=== PATIENT | female | born 1990 | race Caucasian/White ===

== ENCOUNTER 2024-01-31 20:44 | Emergency (ER) | payer SELFPAY ==
[2024-01-31 20:50] VITALS: BP 113/79
--- NOTE | 2024-01-31 21:23 | ED.GENMED ---
History of Present Illness
<Amina Wilkes PA-C - Last Filed: 01/31/24 23:08>
General
Chief Complaint: Musculo-Skeletal Complaint
Source: patient
Exam Limitations: none
Time Seen by Provider: 01/31/24 21:17
Nursing documentation reviewed up to this point in time: agreed with
Travel History
Have you had any contact with someone who has COVID-19?: No
Do you have any symptoms of coronavirus? Fever > 100 degrees, chills, cough, shortness of breath, sore throat, loss of taste or smell, muscle aches, or headache?: No
History of Present Illness
History of Present Illness:
Patient is a 33-year-old female with no significant past medical history presenting for evaluation of left foot injury. Patient states that she was walking her dog earlier today around 3 PM when her dog pulled the leash and she tripped. She
initially had pain in her left ankle but after getting home she noticed that the pain was in her left foot. She endorses some bruising and swelling to her left lateral foot. She has been unable to weight-bear without assistance since. Patient
denies any numbness or tingling in left foot. She denies sustaining any other injuries in the fall. She did not hit her head or lose consciousness.
Phy Exam
<Amina Wilkes PA-C - Last Filed: 01/31/24 23:08>
Physical Exam
Physical Exam:
Vitals: Patient's vital signs are stable
General: Patient is well appearing, no acute distress
Skin: Warm and dry, no rashes or lesions
Head: Normocephalic, atraumatic
Eyes: Sclera nonicteric. EOMs intact. No nystagmus.
Cardiac: Regular rate and rhythm, no murmurs.
Pulm: Normal respiratory effort, no wheezes, rales, rhonchi heard on exam.
Abdomen: No abdominal tenderness.
Extremities: Significant tenderness noted around base of fifth metatarsal with surrounding edema and bruising, mild tenderness to lateral foot, no tenderness of the midfoot or hindfoot, no calcaneal tenderness, no notable tenderness or edema
surrounding medial or lateral malleolus, no tenderness at head of fibula; Achilles intact, left lower extremity neurovascular intact, strong and palpable DP and PT pulses
Neuro: AAOx3. CN II-XII intact. No focal neurologic deficits.
Psychiatric: Normal affect.
Course
<Amina Wilkes PA-C - Last Filed: 01/31/24 23:08>
Orders/Labs/Results
Orders:
Orders
01/31/24 20:54
CR Ankle - Left Min 3 Views Urgent
Comment:
Reason For Exam: injury, pain
CR Foot - Left Min 3 Views Urgent
Comment:
Reason For Exam: injury, pain
01/31/24 21:33
Ibuprofen [Motrin] 400 mg PO NOW STA
01/31/24 22:04
Crutches-Treatment ONCE
Ortho Boot Left- Treatment ONCE
Short or tall?: Tall
Vital Signs
Initial and Last Documented VS:
Initial Vital Signs
Temp Pulse Resp BP Pulse Ox
98.8 F 94 16 113/79 98
01/31/24 20:50 01/31/24 20:50 01/31/24 20:50 01/31/24 20:50 01/31/24 20:50
Last Documented Vital Signs
Temp Pulse Resp BP Pulse Ox
98.8 F 87 16 116/64 98
01/31/24 20:50 01/31/24 22:41 01/31/24 20:50 01/31/24 22:41 01/31/24 20:50
<Moraima Houston MD - Last Filed: 01/31/24 22:34>
Orders/Labs/Results
Orders:
Orders
01/31/24 20:54
CR Ankle - Left Min 3 Views Urgent
Comment:
Reason For Exam: injury, pain
CR Foot - Left Min 3 Views Urgent
Comment:
Reason For Exam: injury, pain
01/31/24 21:33
Ibuprofen [Motrin] 400 mg PO NOW STA
01/31/24 22:04
Crutches-Treatment ONCE
Ortho Boot Left- Treatment ONCE
Short or tall?: Tall
Vital Signs
Initial and Last Documented VS:
Initial Vital Signs
Temp Pulse Resp BP Pulse Ox
98.8 F 94 16 113/79 98
01/31/24 20:50 01/31/24 20:50 01/31/24 20:50 01/31/24 20:50 01/31/24 20:50
Last Documented Vital Signs
Temp Pulse Resp BP Pulse Ox
98.8 F 87 16 116/64 98
01/31/24 20:50 01/31/24 22:41 01/31/24 20:50 01/31/24 22:41 01/31/24 20:50
<Amina Wilkes PA-C - Last Filed: 01/31/24 23:08>
MDM/Problems Addressed
Differential Diagnosis Includes:
Not limited to: Fracture, sprain
MDM/Problems Addressed:
Patient is a 33-year-old female presenting for evaluation of left foot injury sustained during a trip and fall earlier today. Patient unable to bear any weight on left foot without assistance. Patient's vital signs are stable. Exam as above. She
does have moderate tenderness around base of fifth metatarsal with surrounding edema and bruising. No evidence of neurovascular compromise left foot. Full range of motion in left knee and left ankle. Motrin, ice.
X-ray performed in triage shows a fracture at the base of the fifth metatarsal. No evidence of any displacement. Will place patient in walking, nonweightbearing until cleared by orthopedics. Rest, ice, elevation, NSAIDs. Stable for discharge
with Ortho follow-up. Patient comfortable with this plan. All questions answered.
Chronic conditions affecting care:
N/A
Acute Exacerbation and/or Progression of Chronic Illness:
N/A
<Amina Wilkes PA-C - Last Filed: 01/31/24 23:08>
*Radiology
Radiology exam reviewed: preliminary read by ED provider (Nondisplaced fracture)
*Pulse Oximetry
Patient hypoxic: no
*EKG
Interpreted by ED Provider?: NA
*Store Operations Associate Interpretation
Rate: Store Operations Associate- N/A
*Critical Care Note
Total Time (30-74mins, 75-104mins- exclusive of procedures): Not Applicable
ED Attending Note
<Amina Wilkes PA-C - Last Filed: 01/31/24 23:08>
-
Portions of this chart may have been created with voice recognition software.� Occasional wrong word or��sound alike� substitutions may have occurred due to the inherent limitations of voice recognition software.
<Moraima Houston MD - Last Filed: 01/31/24 22:34>
ED Attending Note
Patient seen and examined by attending physician: Yes
I performed the substantive portion of visit, reviewed & personally made and approve the management plan that is documented in note by myself or PALMA.: Yes
ED Attending Note:
33-year-old female who was walking her dog and was pulled causing her to fall at around 2:30 PM today. Since that time, she is complaining of pain at the left proximal fifth phalanx of the foot, no ankle pain, knee pain, or injury otherwise.
Patient notes pain particularly when she stands or walks. On exam, there is swelling, slight bruising, and tenderness to palpation noted at the proximal fifth metatarsal of the foot, no break in skin, no deformity, no ankle, tib-fib, or other
abnormality/tenderness noted. Patient will be provided with a walking boot, advised to be nonweightbearing, close follow-up.
Discharge Plan
Departure
Patient Disposition: Home (Routine Discharge)
Date of Disposition: 01/31/24
Time of Disposition: 22:19
Patient with high blood pressure during this ER visit?: No
Condition: Good
Covid-19: Not Applicable
Discharge Problem:
Fracture of base of fifth metatarsal bone of left foot
Instructions: Foot Fracture (DC)
Referrals:
NONE,* [Family Provider] -
Beck Nicholas MD [Active] - Next open appointment
Activity Restrictions/Additional Instructions:
-Return to the emergency department with any severe pain in left foot, significant swelling of left foot, numbness/tingling in left foot, worsening in current symptoms, or any other concerns
-As discussed- you were found to have a fracture in your left foot today. You should remain non-weight bearing until cleared by orthopedics. You should wear the boot at all times. You an remove when sleeping
-You should ice foot, keep foot elevated as often as possible. You can take tylenol and/or motrin as needed for discomfort. You can alternate these medications
-You should follow-up with orthopedics as soon as possible for further evaluation/management. Call saturday morning for appointment
Interventions
Interventions:
*Risk Screen - Suicide Last Done: 01/31/24 20:50
*General Assessment Last Done: 01/31/24 20:50
*Neglect/Abuse Screening Last Done: 01/31/24 20:50
*Nursing Disposition Last Done: 01/31/24 22:41
ED-Musculoskeletal Assessment Last Done: 01/31/24 21:17
Discharge Date and Time
Discharge Date/Time: 01/31/24 22:42
Print Language: SWISS
[2024-01-31] MEDS: MOTRIN 400 MG PO (21:44)
[2024-01-31 22:38] VITALS: BP 116/64
[2024-01-31 22:41] VITALS: BP 116/64
== END 2024-01-31 22:42 | disposition home or self-care (01) ==
LOC: EMR 20:44
PROVIDERS: EMERGENCY PHYSICIAN Emergency Medicine
DX: S92.355A Nondisplaced fracture of fifth metatarsal bone, left foot, initial encounter for closed fracture (principal); W01.0XXA Fall on same level from slipping, tripping and stumbling without subsequent striking against object, initial encounter
CPT/HCPCS: 99283; 73610; 73630